=== PATIENT | female | born 2000 | race Two or more races ===

== ENCOUNTER 2023-04-14 16:50 | Emergency (ER) | payer OTHER ==
[~2023-04-14] VITALS: Ht 177.8 cm; Wt 60.8 kg
== END 2023-04-14 18:31 | disposition home or self-care (01) ==
LOC: ER 16:50
DX: J03.80 Acute tonsillitis due to other specified organisms (principal); B96.89 Other specified bacterial agents as the cause of diseases classified elsewhere
CPT/HCPCS: 96372; 99284; J0696; J1885